=== PATIENT | female | born 1980 | race Caucasian/White ===

== ENCOUNTER 2018-02-02 08:51 | Emergency (ER) | payer OTHER ==
[2018-02-02 09:02] VITALS: BP 111/62
--- NOTE | 2018-02-02 09:43 | UC ---
Pediatric ENT HPI - HPI Summary HPI Summary: The patient is a 37-year-old female with a three-day history of mild sore throat. She has had no URI symptoms. She has had no fever or chills. She has no change in her oral intake. She has a son has strep throat and she states she just wanted get it checked out so didn't wreck her [place]. - History Of Current Complaint Chief Complaint: UCGeneralIllness Stated Complaint: SORE THROAT Time Seen by Provider: 02/02/18 09:10 Hx Obtained From: Patient Onset/Duration: Gradual Onset, Lasting Days Timing: Constant Severity Initially: Mild Severity Currently: Mild Pain Intensity: 3 Pain Scale Used: 0-10 Numeric Character: Sharp Aggravating Factor(s): Feeding - Allergies/Home Medications Allergies/Adverse Reactions: Allergies Allergy/AdvReac Type Severity Reaction Status Date / Time cefaclor [From [facility]] Allergy Rash Verified 02/02/18 09:03 Home Medications: Home Medications NK [No Home Medications Reported] 02/02/18 [History Confirmed 02/02/18] Past Medical History Previously Healthy: Yes - Family History Family History of Asthma: No Family History Of Seizure: No Other: +hypertension Review Of Systems All Other Systems Reviewed And Are Negative: Yes Constitutional: Positive: Negative Eyes: Positive: Negative ENT: Positive: Throat Pain Cardiovascular: Positive: Negative Respiratory: Positive: Negative Gastrointestinal: Positive: Negative Genitourinary: Positive: Negative Musculoskeletal: Positive: Negative Skin: Positive: Negative Neurological: Positive: Negative Psychological: Positive: Negative Physical Exam Triage Information Reviewed: Yes Vital Signs: Initial Vital Signs Temp 97.7 F 02/02/18 08:59 Pulse 80 02/02/18 08:59 Resp 16 02/02/18 08:59 BP 111/62 02/02/18 08:59 Pulse Ox 100 02/02/18 08:59 Vital Signs Reviewed: Yes Appearance: No Pain Distress, Well-Nourished ENT: Positive: Hearing grossly normal, Pharyngeal erythema, TMs normal, Uvula midline. Negative: Nasal congestion, Nasal drainage, Tonsillar swelling, Tonsillar exudate, Trismus, Hoarse voice Neck: Positive: Supple, Nontender, No Lymphadenopathy Respiratory: Positive: Lungs clear, Normal breath sounds, No respiratory distress, No accessory muscle use Cardiovascular: Positive: Normal, RRR Musculoskeletal: Positive: Strength Intact, ROM Intact Neurological: Positive: Normal Psychological: Positive: Normal Diagnostics - Laboratory Diagnostic Studies Completed/Ordered: strep (-) Pediatric EENT Course/Dx - Differential Dx/Diagnosis Provider Diagnosis: Pharyngitis Discharge - Sign-Out/Discharge Documenting (check all that apply): Post-Discharge Follow Up All imaging exams completed and their final reports reviewed: No Studies - Discharge Plan Condition: Stable Disposition: HOME Patient Education Materials: Pharyngitis (ED) Referrals: Barbara Acosta NP [Primary Care Provider] - If Needed Additional Instructions: strep (-) recheck for new or worsening symptoms or if not better in 4 days - Billing Disposition and Condition Condition: STABLE Disposition: Home
== END 2018-02-02 09:45 | disposition home or self-care (01) ==
LOC: UCEAST 08:51
DX: J02.9 Acute pharyngitis, unspecified (principal); Z88.1 Allergy status to other antibiotic agents
CPT/HCPCS: 87651; 99211; G0463